=== PATIENT | female | born 1995 | race Caucasian/White ===

== ENCOUNTER 2017-05-09 19:22 | Outpatient (CLI) | payer MEDICAID ==
[2017-05-09 19:59] LABS: APPEARANCE,URINE SLIGHTLY-CLOUDY; BILIRUBIN,URINE NEGATIVE (NEGATIVE); COLOR,URINE YELLOW; GLUCOSE, URINE NEGATIVE (NEGATIVE); KETONES,URINE NEGATIVE (NEGATIVE); LEUKOCYTE ESTERASE,URINE MODERATE (NEGATIVE); NITRITE,URINE NEGATIVE (NEGATIVE); PROTEIN,URINE NEGATIVE (NEGATIVE); URINE SPECIFIC GRAVITY 1.018
[2017-05-09 20:20] LABS: URINE AMPHETAMINES SCREEN NEGATIVE; URINE BARBITURATES SCREEN NEGATIVE; URINE BENZODIAZEPINES SCREEN NEGATIVE; URINE COCAINE SCREEN NEGATIVE; URINE MARIJUANA (THC) SCREEN NEGATIVE; URINE METHADONE SCREEN NEGATIVE; URINE PHENCYCLIDINE SCREEN NEGATIVE
--- NOTE | 2017-05-09 20:36 | Non Stress Test Report ---
Non Stress Test Datetime Report Generated by CPN: 05/09/2017 20:36 DEMOGRAPHIC EGA NST: 37.1 INDICATION Indication for Study: Ordered by Provider URINE RESULTS Urine Protein, NST: Negative Urine Ketones - NST: Negative Urine Glucose - NST: Negative Urine Blood - NST: Negative MONITORING Monitor Explained: Monitor Explained; Test Explained; Patient Verbalized Understanding Time on Monitor: 05/09/2017 19:47 Time off Monitor: 05/09/2017 20:16 NST Duration: 29 NST INTERVENTIONS NST Interventions: PO Hydration; Reposition Patient Physician Notified NST: Dr. Malone BABY A: [id number] BABY A Movement : Present Contraction Frequency : none FHR Baseline : 130 Accelerations : 15X15 Decelerations : None Variability : Moderate 6-25bpm NST Review: Meets Criteria for Reactive NST NST Review and Verified By : Eduin Mcneill RN NST Results: Reactive NST REPORT Report Trigger: Send Report
== END 2017-05-09 20:36 | disposition home or self-care (01) ==
LOC: LC 19:22
PROVIDERS: ATTEND Obstetrics & Gynecology Gynecology
PROC: 4A1HXCZ Monitoring of Products of Conception, Cardiac Rate, External Approach (ICD-10-PCS; principal; 2017-05-09)
DX: O47.1 False labor at or after 37 completed weeks of gestation (principal); Z3A.37 37 weeks gestation of pregnancy
CPT/HCPCS: 59025; 80307; 81005

== ENCOUNTER 2017-05-14 14:04 | Emergency (ER) | payer MEDICAID ==
[2017-05-14 14:10] VITALS: BP 128/84
--- NOTE | 2017-05-14 14:19 | ER Document Report ---
ED Flu Like - General Chief Complaint: Flu Symptoms Stated Complaint: FLU LIKE SYMPTOMS Time Seen by Provider: 05/14/17 14:19 Mode of Arrival: Ambulatory Information source: Patient TRAVEL OUTSIDE OF THE [place] IN LAST 30 DAYS: No - HPI Onset: Yesterday Timing/Duration: Sudden Quality of pain: Achy Recent travel: No: Domestic, International, Air, Bus, Car, Train [place] exposure: No Tick/Insect bite: No: Confirmed, Suspected, Camping/Hiking, Other Associated symptoms: Chills, Productive cough, Earache, Rhinnorhea, Sore throat. denies: Headache, Sinus pain/drainage Similar symptoms previously: No Recently seen / treated by doctor: Yes - ROUTINE PRE-HALLIE - Related Data Allergies/Adverse Reactions: oxycodone HCl [From Percocet] Allergy (Verified 05/14/17 14:05) Past Medical History - General Information source: Patient - Social History Smoking Status: Unknown if Ever Smoked Frequency of alcohol use: None Drug Abuse: None Lives with: Spouse/Significant other Family History: Reviewed & Not Pertinent Patient has suicidal ideation: No Patient has homicidal ideation: No - Past Medical History Cardiac Medical History: Reports: None Pulmonary Medical History: Reports: None EENT Medical History: Reports: None Neurological Medical History: Reports: None Endocrine Medical History: Reports: None Renal/ Medical History: Reports: None Malignancy Medical History: Reports: None GI Medical History: Reports: None Musculoskeltal Medical History: Reports None Psychiatric Medical History: Reports: None Past Surgical History: Reports: Hx Orthopedic Surgery - Immunizations Immunizations up to date: Yes Hx Diphtheria, Pertussis, Tetanus Vaccination: Yes Review of Systems - Review of Systems Constitutional: See HPI EENT: See HPI Cardiovascular: No symptoms reported Respiratory: See HPI Gastrointestinal: No symptoms reported Genitourinary: denies: Dysuria Female Genitourinary: Musculoskeletal: See HPI Skin: No symptoms reported Neurological/Psychological: No symptoms reported. denies: Headaches Physical Exam - Vital signs Vitals: Temp Pulse Resp BP Pulse Ox 97.8 F 92 18 128/84 H 94 05/14/17 14:08 05/14/17 14:08 05/14/17 14:08 05/14/17 14:08 05/14/17 14:08 Interpretation: Normal - General General appearance: Appears well, Alert In distress: None - HEENT Head: Normocephalic Eyes: Normal Conjunctiva: Normal. No: Injected Ears: Normal External canal: Normal Tympanic membrane: Normal Nasal: Normal Mouth/Lips: Normal Mucous membranes: Normal Pharynx: Normal Neck: Normal - Respiratory Respiratory status: No respiratory distress Breath sounds: Normal - Cardiovascular Rhythm: Regular Heart sounds: Normal auscultation Murmur: No - Abdominal Inspection: Gravid female - Back Back: Normal - Extremities General upper extremity: Normal inspection General lower extremity: Normal inspection - Neurological Neuro grossly intact: Yes Cognition: Normal Orientation: AAOx4 - Psychological Associated symptoms: Normal affect, Normal mood - Skin Skin Temperature: Warm Skin Moisture: Dry Skin Color: Normal Skin Turgor: Elastic Course - Vital Signs Vital signs: Temp Pulse Resp BP Pulse Ox 97.8 F 92 18 128/84 H 94 05/14/17 14:08 05/14/17 14:08 05/14/17 14:08 05/14/17 14:08 05/14/17 14:08 Discharge - Discharge Clinical Impression: Viral illness Qualifiers: Weeks of gestation: 37 weeks Qualified Code(s): Z3A.37 - 37 weeks gestation of Condition: Stable Disposition: HOME, SELF-CARE Instructions: Viral Syndrome ([facility]) Additional Instructions: REST, DRINK PLENTY OF FLUIDS. YOU MAY TAKE TYLENOL (ACETAMINOPHEN) FOR CONTROL OF FEVER, ACHES & PAINS, IF NEEDED. CONSIDER TAKING MUCINEX (GUIAFENESIN) TO LOOSEN UP CONGESTION. FOLLOW UP WITH OB. OR RETURN TO E.R. IF PROBLEMS, ANY TIME.
== END 2017-05-14 15:10 | disposition home or self-care (01) ==
LOC: ER 14:04
DX: B34.9 Viral infection, unspecified (principal); Z3A.37 37 weeks gestation of pregnancy
CPT/HCPCS: 99283

== ENCOUNTER 2017-05-25 03:01 | Outpatient (CLI) | payer MEDICAID ==
[2017-05-25] MEDS ORDERED: ONDANSETRON 4 MG TAB.RAPDIS PO ONE (03:37)
[2017-05-25] MEDS ORDERED: ONDANSETRON 4 MG TAB.RAPDIS ONE (03:40)
[2017-05-25 03:46] LABS: APPEARANCE,URINE SLIGHTLY-CLOUDY; BILIRUBIN,URINE NEGATIVE (NEGATIVE); COLOR,URINE YELLOW; GLUCOSE, URINE NEGATIVE (NEGATIVE); KETONES,URINE NEGATIVE (NEGATIVE); LEUKOCYTE ESTERASE,URINE NEGATIVE (NEGATIVE); NITRITE,URINE NEGATIVE (NEGATIVE); PROTEIN,URINE NEGATIVE (NEGATIVE); URINE SPECIFIC GRAVITY 1.019; UROBILINOGEN,URINE NEGATIVE mg/dL (<2.0)
[2017-05-25 04:06] LABS: URINE AMPHETAMINES SCREEN NEGATIVE; URINE BARBITURATES SCREEN NEGATIVE; URINE BENZODIAZEPINES SCREEN NEGATIVE; URINE COCAINE SCREEN NEGATIVE; URINE MARIJUANA (THC) SCREEN NEGATIVE; URINE METHADONE SCREEN NEGATIVE; URINE PHENCYCLIDINE SCREEN NEGATIVE
--- NOTE | 2017-05-25 04:34 | Non Stress Test Report ---
Non Stress Test Datetime Report Generated by CPN: 05/25/2017 04:33 DEMOGRAPHIC EGA NST: 39.3 INDICATION Indication for Study: Ordered by Provider; Other Indication for Study (NST) Other: LC VITAL SIGNS Temperature - NST: 98.1 Pulse - NST: 83 RESP - NST: 18 NBPSYS NST: 118 NBPDIA NST: 60 URINE RESULTS Urine Protein, NST: Negative Urine Ketones - NST: Negative Urine Glucose - NST: Negative Urine Blood - NST: Positive MONITORING Monitor Explained: Monitor Explained; Test Explained; Patient Verbalized Understanding Time on Monitor: 05/25/2017 03:17 Time off Monitor: 05/25/2017 04:06 NST Duration: 49 NST INTERVENTIONS NST Interventions: None Physician Notified NST: Dr. Padron BABY A: [id number] BABY A Movement : Present Contraction Frequency : 3-8 FHR Baseline : 120 Accelerations : 15X15 Decelerations : None Variability : Moderate 6-25bpm NST Review: Meets Criteria for Reactive NST NST Review and Verified By : TiannaAlbert Myers RN NST Results: Reactive NST REPORT Report Trigger: Send Report
[2017-05-25] MEDS ORDERED: RINGERS SOLUTION,LACTATED 1,000 ML IV PRN (16:51)
[2017-05-25 17:54] LABS: APPEARANCE,URINE SLIGHTLY-CLOUDY; BILIRUBIN,URINE NEGATIVE (NEGATIVE); COLOR,URINE YELLOW; GLUCOSE, URINE NEGATIVE (NEGATIVE); KETONES,URINE 80 mg/dL (NEGATIVE); LEUKOCYTE ESTERASE,URINE TRACE (NEGATIVE); NITRITE,URINE NEGATIVE (NEGATIVE); PROTEIN,URINE 30 mg/dL (NEGATIVE); URINE SPECIFIC GRAVITY 1.017; UROBILINOGEN,URINE NEGATIVE mg/dL (<2.0)
[2017-05-25 18:08] LABS: ABSOLUTE MONOCYTES (AUTO) 0.5 10^3/uL (0.1-1.4); BASOPHILS % (AUTO) 0.1 % (0-2); HEMATOCRIT 32.5 % (36.0-47.0); HEMOGLOBIN 10.8 g/dL (12.0-15.5); LYMPHOCYTES % (AUTO) 5.2 % (13-45); MEAN CORPUSCULAR HEMOGLOBIN 27.5 pg (27.0-33.4); MEAN CORPUSCULAR HGB CONC 33.3 g/dL (32.0-36.0); MEAN CORPUSCULAR VOLUME 83 fl (80-97); MONOCYTES % (AUTO) 2.3 % (3-13); PLATELET COUNT 163 10^3/uL (150-450); RED BLOOD COUNT 3.94 10^6/uL (3.72-5.28); RED CELL DISTRIBUTION WIDTH 14.1 % (11.5-14.0); SEGMENTED NEUTROPHILS % (AUTO) 92.4 % (42-78); TOTAL CELLS COUNTED % (AUTO) 100 %; WHITE BLOOD COUNT 19.5 10^3/uL (4.0-10.5)
== END 2017-05-25 04:27 | disposition home or self-care (01) ==
LOC: LC 03:01
PROVIDERS: ATTEND Obstetrics & Gynecology
PROC: 4A1HXCZ Monitoring of Products of Conception, Cardiac Rate, External Approach (ICD-10-PCS; principal; 2017-05-25)
DX: O47.1 False labor at or after 37 completed weeks of gestation (principal); Z3A.39 39 weeks gestation of pregnancy
CPT/HCPCS: 59025; 86900; 86901; 36415; 86870; 86850; 85025; 81005; 86592; 80307; S0119

== ENCOUNTER 2017-05-25 12:22 | Inpatient (IN) | payer MEDICAID ==
[2017-05-25] MEDS ORDERED: RINGERS SOLUTION,LACTATED 700 ML IV ONE (13:00)
[2017-05-25] MEDS ORDERED: PROMETHAZINE HCL INJ 25 MG/1 ML VIAL IV ONE (13:00)
[2017-05-25 13:04] LABS: APPEARANCE,URINE SLIGHTLY-CLOUDY; BILIRUBIN,URINE NEGATIVE (NEGATIVE); COLOR,URINE YELLOW; GLUCOSE, URINE NEGATIVE (NEGATIVE); KETONES,URINE 80 mg/dL (NEGATIVE); LEUKOCYTE ESTERASE,URINE TRACE (NEGATIVE); NITRITE,URINE NEGATIVE (NEGATIVE); PROTEIN,URINE 100 mg/dL (NEGATIVE); URINE SPECIFIC GRAVITY 1.029; UROBILINOGEN,URINE NEGATIVE mg/dL (<2.0)
[2017-05-25 13:20] LABS: URINE AMPHETAMINES SCREEN NEGATIVE; URINE BARBITURATES SCREEN NEGATIVE; URINE BENZODIAZEPINES SCREEN NEGATIVE; URINE COCAINE SCREEN NEGATIVE; URINE MARIJUANA (THC) SCREEN NEGATIVE; URINE METHADONE SCREEN NEGATIVE; URINE PHENCYCLIDINE SCREEN NEGATIVE
[2017-05-25] MEDS ORDERED: PROMETHAZINE HCL INJ 25 MG/1 ML VIAL ONE (13:31)
[2017-05-25] MEDS ORDERED: RINGERS SOLUTION,LACTATED 1,000 ML IV PRN (14:19)
[2017-05-25] MEDS ORDERED: EPHEDRINE SULFATE INJ 50 MG/1 ML AMPULE ONE (18:43)
[2017-05-25] MEDS ORDERED: FENTANYL/BUPIVACAINE/NS/PF 200 MCG/100 ML RTUINJ EPI ONE (18:43)
[2017-05-25] MEDS ORDERED: BUPIVACAINE HCL 0.25 % INJ/PF (2.5 MG/1 ML) 30 ML VIAL ONE (18:44)
[2017-05-25] MEDS ORDERED: MISOPROSTOL 0.2 MG TABLET ONE (21:02)
--- NOTE | 2017-05-25 21:02 | L&D Progress Notes ---
PROGRESS NOTES Datetime Report Generated by CPN: 05/25/2017 21:01 PROGRESS NOTE Impression: Normal Progression of Labor Procedures: Artificial ROM; Sterile Vag Exam Plan: Continue Present Management Informed Consent Obtained: Vaginal Delivery Vital Signs : Reviewed Comment: Comfortable with epidural AROM, blood tinged fluid Start pitocin VAGINAL EXAM Dilatation: 7 Dilatation: 3 Effacement: 90 Effacement: 75 Station: -1 Station: -3 Contractions: irreg Contractions: 2-5 MEMBRANES Membranes: Ruptured Membranes: Intact Amniotic Fluid Color: Bloody FETUS A FHR - Baseline: 150 Variability: Moderate 6-25bpm Accelerations: 15X15 Decelerations: Variable FHR Category: Category I Presentation: Vertex SIGNATURE SIGNATURE: ,[id number];,[id number] SIGNATURE: [id number] SIGNATURE: ,[id number] Assignment: Savanna Billingsley MD Signature: with User ID: [email or web address] : with User ID: [email or web address]
[2017-05-25] MEDS ORDERED: OXYTOCIN/NORMAL SALINE 20 UNIT/1,000 ML RTUINJ IV PRN (21:03)
[2017-05-25] MEDS ORDERED: LIDOCAINE 1% INJ-PF (10 MG/ML) 30 ML SDV ONE (21:03)
[2017-05-25] MEDS ORDERED: OXYTOCIN/NORMAL SALINE 20 UNIT/1,000 ML RTUINJ ONE (21:03)
[2017-05-26] MEDS ORDERED: CEFAZOLIN 2 GM/D5W RTU 2 GM/50 ML RTUPB IV ONE (03:27)
[2017-05-26] MEDS ORDERED: CITRIC ACID/SODIUM CITRATE ORAL SOLN 15 ML UDCUP ONE (03:27)
[2017-05-26] MEDS ORDERED: CEFAZOLIN SODIUM 2 GM in DEXTROSE 5%-WATER 50 ML IV PRN (03:34)
[2017-05-26] MEDS ORDERED: LIDOCAINE 2% INJ-PF (20 MG/ML) 10 ML AMPUL ONE (03:37)
[2017-05-26] MEDS ORDERED: ONDANSETRON HCL INJ/PF 4 MG/2 ML SDV ONE (04:33)
[2017-05-26] MEDS ORDERED: MIDAZOLAM 2 MG/2 ML INJ ONE (04:33)
[2017-05-26] MEDS ORDERED: MORPHINE SULFATE 10 MG/ML INJ ONE (04:33)
[2017-05-26] MEDS ORDERED: OXYTOCIN 10 UNIT/ML VIAL ONE (04:33)
[2017-05-26] MEDS ORDERED: KETAMINE HCL INJ 500 MG/10 ML VIAL ONE (04:33)
[2017-05-26] MEDS ORDERED: PROPOFOL INJ 200 MG/20 ML VIAL IV ONE (05:13)
[2017-05-26] MEDS ORDERED: FENTANYL CITRATE INJ/PF 100 MCG/2 ML AMPUL ONE (05:26)
--- NOTE | 2017-05-26 06:08 | OPERATIVE REPORT E ---
Operative Report NAME: GERA LOZOYA : 1995 AGE: 22Y DATE OF SURGERY: 05/26/2017 ROOM: LR200 PREOPERATIVE DIAGNOSES: 1. IUP at 39 weeks and 4 days. 2. Failure to progress. POSTOPERATIVE DIAGNOSES: 1. IUP at 39 weeks and 4 days. 2. Failure to progress. SURGEON: RICHARD BALLESTEROS M.D. ANESTHESIA: Dr. Langley with general. FINDINGS: A male in cephalic presentation with Apgars of 9 and 9. ESTIMATED BLOOD LOSS: 600 mL. SPECIMENS REMOVED: None. PROCEDURE: A low transverse hysterotomy section. PROCEDURE IN DETAIL: The patient was taken to the operating room and prepared and draped in the normal sterile fashion in a supine position with a leftward tilt. A transverse skin incision was made with the scalpel and the patient complained of being able to feel too much pain and so the procedure was paused while the anesthesiologist placed the patient under general as the regional anesthesia did not seem to be working appropriately. At this point, once the intubation was completed, I continued with dividing of the fascia in the midline with the Caal's and extending laterally with Caal's. The fascia was dissected from the rectus muscle bluntly and the rectus muscle was divided and peritoneal cavity was entered bluntly. Good visualization of the bladder and uterus was obtained and the bladder blade was inserted. Hysterotomy was nicked with a scalpel and extended laterally with surgeon finger fracture. The infant was then delivered atraumatically. The nose and mouth were suctioned with a suction bulb and cord was clamped and cut and the was handed off to awaiting pediatricians. Cord blood was collected and the placenta was removed manually. The uterus was exteriorized and cleared of clots and debris. The hysterotomy was closed with 0 Monocryl in a running-locked fashion. A second layer of the same suture was used to imbricate to ensure hemostasis. The uterus was returned to the peritoneal cavity, which was then cleared of clots and debris. The rectus muscle and peritoneum were then reapproximated with a mattress stitch of 2-0 Chromic. The fascia was closed with 0 Vicryl. The subcutaneous layer was closed with plain catgut and the skin was closed with 4-0 Vicryl. The patient tolerated the procedure well. Sponge, lap, and needle counts were correct x2. The patient was taken to recovery in stable condition. DICTATING PHYSICIAN: RICHARD BALLESTEROS M.D. [id number] PHY#: [id number] ID: [id number] JOB#: [id number] ACCT: [id number] cc:RICHARD BALLESTEROS M.D. >
[2017-05-26] MEDS ORDERED: OXYTOCIN/NORMAL SALINE 20 UNIT/1,000 ML RTUINJ ONE (07:18)
[2017-05-26] MEDS ORDERED: ACETAMINOPHEN 100 ML IV ONE (07:24)
[2017-05-26] MEDS ORDERED: PROMETHAZINE HCL INJ 25 MG/1 ML VIAL IV PRN (07:26)
[2017-05-26] MEDS ORDERED: OXYTOCIN/NORMAL SALINE 20 UNIT/1,000 ML RTUINJ IV PRN (07:26)
[2017-05-26] MEDS ORDERED: ACETAMINOPHEN 100 ML IV PRN (07:26)
[2017-05-26] MEDS ORDERED: ACETAMINOPHEN 325 MG TABLET PO PRN (07:26)
[2017-05-26] MEDS ORDERED: MEASLES,MUMPS&RUBELLA VACC/PF 0.5 ML VIAL SUBCUT PRN (07:26)
[2017-05-26] MEDS ORDERED: HYDROMORPHONE HCL INJ/PF 2 MG/ML AMPULE IV PRN (07:26)
[2017-05-26] MEDS ORDERED: SIMETHICONE 80 MG TAB.CHEW PO PRN (07:26)
[2017-05-26] MEDS ORDERED: DIPH/PERTUSS(ACELL)/TETANUS VAC/PF 0.5 ML SYR (>=10YO) IM PRN (07:26)
[2017-05-26] MEDS ORDERED: OXYCODONE-ACETAMINOPHEN 5-325 MG TABLET PO PRN ×2 (07:31→07:33)
--- NOTE | 2017-05-26 08:12 | Admission Physical ---
Datetime Report Generated by CPN: 05/26/2017 08:12 CURRENT ADMISSION Hx Assessment: The History has been Reviewed and is Current Chief Complaint: Uterine Contractions Indication for Induction: Not Applicable Indication for Induction: Term, Intrauterine ; Active Labor; Intact Membranes Admit Plan: Admit to Unit; Initiate Labor Protocol ALLERGIES Medication Allergies: Yes Medication Allergies: oxycodone HCl (05/25/2017) Medication Allergies: oxycodone HCl (05/14/2017) Medication Allergies: oxycodone HCl (05/09/2017); acetaminophen (05/09/2017) Medication Allergies: oxycodone HCl (02/15/2014); acetaminophen (02/15/2014) Latex: No Latex Allergies Food Allergies: none Environmental Allergies: cats OBSTETRICAL HISTORY EDC: 05/29/2017 00:00 : 1 Para: 0 Term: 0 : 0 SAB: 0 IAB: 0 Ectopic: 0 Livin Cesareans: 0 VBACs: 0 Multiple Births: 0 Gestational Diabetes: No Rh Sensitization: No Incompetent Cervix: No CHRIS: No Infertility: No ART Treatment: No Uterine Anomaly: No IUGR: No Hx Previous C/S: No Macrosomia: No Hx Loss/Stillborn: No PIH: No Hx : No Placenta Previa/Abruption: No Depression/PP Depression: No PTL/PROM: No Post Hemorrhage: No Current Procedures: Ultrasound; NST Obstetrical History Comments: G1 - current SEE RECORDS Alcohol: No Marijuana : No Cocaine: No Other Illicit Drugs: No Cigarettes: Never Smoker. [id number] MEDICAL HISTORY Diabetes: No Blood Transfusion: No Pulmonary Disease (Asthma, TB): No Breast Disease: No Hypertension: No Tower Supervisor Surgery: No Heart Disease: No Hosp/Surgery: Yes Autoimmune Disorder: No Anesthetic Complications: No Kidney Disease: No Abnormal Pap Smear: No Neuro/Epilepsy: No Psychiatric Disorders: No Other Medical Diseases: No Hepatitis/Liver Disease: No Significant Family History: No Varicosities/Phlebitis: No Trauma/Violence : No Thyroid Dysfunction: No Medical History Comments: Femur surgery INFECTIOUS HISTORY Gonorrhea: No Genital Herpes: No Chlamydia: No Tuberculosis: No Syphilis: No Hepatitis: No HIV/AIDS Exposure: No Rash or Viral Illness: No HPV: No PHYSICAL EXAM General: Normal HEENT: Normal Neurologic: Normal Thyroid: Deferred Heart: Normal Lungs: Normal Breast: Normal Back: Normal Abdomen: Normal Genitourinary Exam: Normal Extremities: Normal DTRs: Normal Pelvic Type: Adequate Vital Signs: Reviewed VAGINAL EXAM Dilatation: 7 Dilatation: 3 Effacement: 90 Effacement: 75 Station: -1 Station: -3 Contraction Comments: irreg Contraction Comments: 2-5 MEMBRANES Membranes: Ruptured Membranes: Intact Amniotic Fluid Color: Bloody FETUS A EGA: 39.3 Monitoring: External US FHR- Baseline: 135 Variability: Moderate 6-25bpm Accelerations: 15X15 Decelerations: None FHR Category: Category I Presentation: Vertex Admit Comment: Admit to L _ D, active labor, denies lof, + bloody show, ctx GBS neg RH neg, received rhogam Pt may have epidural prn care uncomplicated other than first trimester spotting. PLANS FOR LABOR AND DELIVERY Labor and Delivery: None Pain Management: Natural Other Pain Management Plans: open to options Feeding Preference: Both Benefit of Breast Feed Discussed: Yes Circumcision: Yes INFORMED CONSENT Informed Consent Obtained: Vaginal Delivery Assignment: Savanna Billingsley MD Signature: with User ID: Lance : with User ID: Lance
[2017-05-26] MEDS: DOCUSATE SODIUM 100 MG CAPSULE PO SCH ×2 (11:45→17:53)
[2017-05-26] MEDS: PRENATAL VITAMIN W DHA CAPSULE PO SCH (11:45)
[2017-05-26] MEDS ORDERED: IBUPROFEN 800 MG TABLET PO SCH (12:00)
[2017-05-26] MEDS ORDERED: HYDROCODONE/ACETAMINOPHEN 5-325 MG TABLET PO PRN ×2 (12:03)
[2017-05-26] MEDS: KETOROLAC TROMETHAMINE INJ/PF 30 MG/1 ML SDV IV SCH ×2 (14:53→22:59)
[2017-05-27] MEDS: KETOROLAC TROMETHAMINE INJ/PF 30 MG/1 ML SDV IV SCH (06:32)
[2017-05-27 07:29] LABS: HEMATOCRIT 25.2 % (36.0-47.0); MEAN CORPUSCULAR HEMOGLOBIN 27.7 pg (27.0-33.4); MEAN CORPUSCULAR HGB CONC 32.9 g/dL (32.0-36.0); MEAN CORPUSCULAR VOLUME 84 fl (80-97); PLATELET COUNT 142 10^3/uL (150-450); RED CELL DISTRIBUTION WIDTH 14.5 % (11.5-14.0); WHITE BLOOD COUNT 16.7 10^3/uL (4.0-10.5)
[2017-05-27 07:33] LABS: HEMOGLOBIN 8.3 g/dL (12.0-15.5)
[2017-05-27] MEDS: DOCUSATE SODIUM 100 MG CAPSULE PO SCH ×2 (09:16→17:34)
[2017-05-27] MEDS: PRENATAL VITAMIN W DHA CAPSULE PO SCH (09:16)
--- NOTE | 2017-05-27 09:46 | PDOC PROGRESS REPORT ---
Subjective-OB Progress Note for:: 05/27/17 Subjective: Post-OP day #1 Is passing gas, tolerating diet, ambulating well, lochia is stable, pain well controlled, voiding without difficulty. Pt c/o bruise on right shoulders, unsure where it came from. Physical Exam (OB) Vital Signs: Temp Pulse Resp BP Pulse Ox 98.7 F 79 18 127/69 H 100 05/27/17 08:29 05/27/17 08:29 05/27/17 08:29 05/27/17 08:29 05/27/17 08:29 Intake & Output 05/26/17 05/27/17 05/28/17 06:59 06:59 06:59 Output Total 1025 Balance -1025 Weight 74.7 kg - PIH/Pre-Eclampsia DTR's: 2 + Clonus: Negative Headache: Absent Epigastric Pain: No Visual Changes: No - Dressing Removed: No Incision: Well Approximated Closure Type: Surgical Glue - Lochia Lochia Amount: Scant < 10 ml Lochia Color: Rubra/Red - Abdomen Description: Soft, Flat Hernia Present: No Fundal Description: Firm, Midline Fundal Height: u/u - u/2 Objective-Diagnostic Laboratory: 05/27/17 06:49 05/27/17 06:49 WBC 16.7 H RBC 3.00 L Hgb 8.3 L D Hct 25.2 L MCV 84 MCH 27.7 MCHC 32.9 RDW 14.5 H Plt Count 142 L Assessment and Plan(PN) - Assessment and Plan (1) Delivery by emergency Is this a current diagnosis for this admission?: Yes Plan: routine postop care (2) Anemia complicating Qualifiers: Trimester: third trimester Qualified Code(s): O99.013 - Anemia complicating , third trimester Is this a current diagnosis for this admission?: Yes Plan: routine post op care (3) Bruise Is this a current diagnosis for this admission?: Yes Plan: monitor - Time Spent with Patient Time with patient: Less than 15 minutes Critical Time spent with patient: Less than 15 minutes Medications reviewed and adjusted accordingly: Yes - Disposition Anticipated Discharge: Home Within: within 24 hours
[2017-05-27] MEDS: IBUPROFEN 800 MG TABLET PO SCH ×2 (13:36→21:24)
[2017-05-28] MEDS: IBUPROFEN 800 MG TABLET PO SCH (05:25)
--- NOTE | 2017-05-28 06:53 | Delivery Summary ---
Del Sum A-C Datetime Report Generated by CPN: 05/28/2017 06:53 DELIVERY PERSONNEL DELIVERY PERSONNEL: [id number] Delivery Doctor:: Savanna Billingsley MD Anesthesiologist:: Aime Langley MD PULMONOLOGY PHYSICIAN:: Eduardo Figueroa CRNA Labor and Delivery Nurse:: Mili Vega RN Web Producer:: Mili Vega RN Neonatal Nurse Practitioner:: SHANTE Stinson Nursery Nurse:: Diana Winslow RN Residential Driver/CREAM SEPARATOR OPERATOR: [facility] Residential Driver/CREAM SEPARATOR OPERATOR: Gauri Urenar, NUCLEAR PLANT OPERATOR MATERNAL INFORMATION Delivery Anesthesia: General Medications After Delivery: Pitocin Drip 20 Units/1000ml NSS Maternal Complications: None LABOR SUMMARY EDC: 05/29/2017 00:00 No. Babies in Womb: 1 Attempted: No Labor Anesthesia: Epidural LABOR INFORMATION Reason for Induction: Not Applicable Onset of Labor: 05/25/2017 12:35 Oxytocin: Induction Group B Beta Strep: negative Antibiotics # of Doses: 1 Antibiotics Time of Last Dose: 0425 Name of Antibiotic Given: ancef Steroids Given: None Reason Steroids Not Administered: Not Applicable MEMBRANES Membranes Rupture Method: Artificial Rupture of Membranes: 05/25/2017 20:55 Length of Rupture (hr): 7.77 Amniotic Fluid Color: Bloody Amniotic Fluid Amount: Large Amniotic Fluid Odor: Normal STAGES OF LABOR Stage 3 hr: 0 Stage 3 min: 2 Total Time in Labor hr: 16 Total Time in Labor min: 8 VAGINAL DELIVERY Episiotomy: None Laceration #1: None Laceration Extension #1: N/A Laceration Repair: Not Applicable Initial Vag Sponge Count: 0 Final Vag Sponge Count: 0 Initial Vag Sharps Count: 0 Final Vag Sharps Count: 0 Sponge Count Correct: N/A Sharps Count Correct: N/A CSECTION DELIVERY Primary Indication: Failure of Descent Secondary Indication: N/A CSection Urgency: Non-Scheduled CSection Incidence: Primary Labor: Labor Elective: Nonelective CSection Incision: Lower Uterine Transverse BABY A INFORMATION Infant Delivery Date/Time: 05/26/2017 04:41 Method of Delivery: Born in Route : No : N/A Forceps: N/A Vacuum Extraction: N/A Shoulder Dystocia : No PRESENTATION/POSITION BABY A Presentation: Cephalic Cephalic Presentation: Vertex Breech Presentation: N/A PLACENTA INFORMATION BABY A Placenta Delivery Time : 05/26/2017 04:43 Placenta Method of Delivery: Expressed Placenta Status: Delivered SCORES BABY A Heart Rate 1 min: >100 bpm Resp Effort 1 min: Good Cry Reflex Irritability 1 min: Cough or Sneeze or Pulls Away Muscle Tone 1 min: Active Motion Color 1 min: Body [place], Extremities Blue SCORE 1 MIN: 9 Heart Rate 5 min: >100 bpm Resp Effort 5 min: Good Cry Reflex Irritability 5 min: Cough or Sneeze or Pulls Away Muscle Tone 5 min: Active Motion Color 5 min: Body [place], Extremities Blue SCORE 5 MIN: 9 INFORMATION BABY A Gestational Age at Delivery: 39.4 Gestational Status: Full Term- 39- 40.6 Weeks Outcome : Liveborn Infant Condition : Stable Infant Sex: Male IDENTIFICATION BABY A Verification Date/Time: 05/26/2017 04:45 ID Band Number: [id number] Mother's Name Verified: Yes Infant RN Verifying Infant: Lindsey RN Additional Verifying Personnel: Gucci RN WEIGHT/LENGTH BABY A Birthweight (gm): 3400 Weight (lb): 7 Infant Weight (oz): 8 Infant Length (in): 21.25 Length (cm): 53.98 CORD INFORMATION BABY A No. Cord Vessels: 3 Nuchal Cord : N/A Cord Blood Taken: Yes-For Eval (Mom's Blood Type - or O+) ASSESSMENT BABY A Physical Findings at Delivery: Within Normal Limits; Molding of the Head Infant Respirations: Appears Normal Skin to Skin: Yes Infant Care By: Reshma Aragon, MANAGED SERVICES CONSULTANT Transferred To: Nursery BABY B INFORMATION : N/A
--- NOTE | 2017-05-28 06:54 | Delivery Summary ---
Del Sum A-C Datetime Report Generated by CPN: 05/28/2017 06:54 DELIVERY PERSONNEL DELIVERY PERSONNEL: [id number] Delivery Doctor:: Savanna Billingsley MD Anesthesiologist:: Aime Langley MD SALES ADVISOR:: Eduardo Figueroa CRNA Labor and Delivery Nurse:: Mili Vega RN Porcelain Turner:: Mili Vega RN Neonatal Nurse Practitioner:: SHANTE Stinson Nursery Nurse:: Diana Winslow RN Die Holder/PUBLIC ADMINISTRATION PROFESSOR: [facility] Die Holder/PUBLIC ADMINISTRATION PROFESSOR: Gauri Urenar, GAS CONTROLLER MATERNAL INFORMATION Delivery Anesthesia: General Medications After Delivery: Pitocin Drip 20 Units/1000ml NSS Maternal Complications: None LABOR SUMMARY EDC: 05/29/2017 00:00 No. Babies in Womb: 1 Attempted: No Labor Anesthesia: Epidural LABOR INFORMATION Reason for Induction: Not Applicable Onset of Labor: 05/25/2017 12:35 Oxytocin: Induction Group B Beta Strep: negative Antibiotics # of Doses: 1 Antibiotics Time of Last Dose: 0425 Name of Antibiotic Given: ancef Steroids Given: None Reason Steroids Not Administered: Not Applicable MEMBRANES Membranes Rupture Method: Artificial Rupture of Membranes: 05/25/2017 20:55 Length of Rupture (hr): 7.77 Amniotic Fluid Color: Bloody Amniotic Fluid Amount: Large Amniotic Fluid Odor: Normal STAGES OF LABOR Stage 3 hr: 0 Stage 3 min: 2 Total Time in Labor hr: 16 Total Time in Labor min: 8 VAGINAL DELIVERY Episiotomy: None Laceration #1: None Laceration Extension #1: N/A Laceration Repair: Not Applicable Initial Vag Sponge Count: 0 Final Vag Sponge Count: 0 Initial Vag Sharps Count: 0 Final Vag Sharps Count: 0 Sponge Count Correct: N/A Sharps Count Correct: N/A CSECTION DELIVERY Primary Indication: Failure of Descent Secondary Indication: N/A CSection Urgency: Non-Scheduled CSection Incidence: Primary Labor: Labor Elective: Nonelective CSection Incision: Lower Uterine Transverse BABY A INFORMATION Infant Delivery Date/Time: 05/26/2017 04:41 Method of Delivery: Born in Route : No : N/A Forceps: N/A Vacuum Extraction: N/A Shoulder Dystocia : No PRESENTATION/POSITION BABY A Presentation: Cephalic Cephalic Presentation: Vertex Breech Presentation: N/A PLACENTA INFORMATION BABY A Placenta Delivery Time : 05/26/2017 04:43 Placenta Method of Delivery: Expressed Placenta Status: Delivered SCORES BABY A Heart Rate 1 min: >100 bpm Resp Effort 1 min: Good Cry Reflex Irritability 1 min: Cough or Sneeze or Pulls Away Muscle Tone 1 min: Active Motion Color 1 min: Body [place], Extremities Blue SCORE 1 MIN: 9 Heart Rate 5 min: >100 bpm Resp Effort 5 min: Good Cry Reflex Irritability 5 min: Cough or Sneeze or Pulls Away Muscle Tone 5 min: Active Motion Color 5 min: Body [place], Extremities Blue SCORE 5 MIN: 9 INFORMATION BABY A Gestational Age at Delivery: 39.4 Gestational Status: Full Term- 39- 40.6 Weeks Outcome : Liveborn Infant Condition : Stable Infant Sex: Male IDENTIFICATION BABY A Verification Date/Time: 05/26/2017 04:45 ID Band Number: [id number] Mother's Name Verified: Yes Infant RN Verifying Infant: Lindsey RN Additional Verifying Personnel: Gucci RN WEIGHT/LENGTH BABY A Birthweight (gm): 3400 Weight (lb): 7 Infant Weight (oz): 8 Infant Length (in): 21.25 Length (cm): 53.98 CORD INFORMATION BABY A No. Cord Vessels: 3 Nuchal Cord : N/A Cord Blood Taken: Yes-For Eval (Mom's Blood Type - or O+) ASSESSMENT BABY A Physical Findings at Delivery: Within Normal Limits; Molding of the Head Infant Respirations: Appears Normal Skin to Skin: Yes Infant Care By: Reshma Aragon, CAPACITOR PACK PRESS OPERATOR Transferred To: Nursery BABY B INFORMATION : N/A
--- NOTE | 2017-05-28 08:31 | PDOC DISCHARGE SUMMARY ---
Final Diagnosis Discharge Date: 05/28/17 - Final Diagnosis (1) Delivery by emergency Is this a current diagnosis for this admission?: Yes (2) Anemia complicating Is this a current diagnosis for this admission?: Yes (3) Bruise Is this a current diagnosis for this admission?: Yes Discharge Data - Discharge Medication Prescriptions: Hydrocodone/Acetaminophen [[place] 5-325 mg Tablet] 2 tab PO Q4HP PRN #30 tablet PRN Reason: Docusate Sodium [Colace 100 mg Capsule] 100 mg PO BID #60 capsule Ferrous Sulfate 325 mg PO BID #60 tablet. Ibuprofen [Motrin 800 mg Tablet] 800 mg PO Q8 #60 tablet Home Medications: Pnv No.95/Ferrous Fum/Folic AC [ Multivitamin Tablet] 1 each PO DAILY Docusate Sodium [Colace 100 mg Capsule] 100 mg PO BID #60 capsule 05/28/17 Ferrous Sulfate 325 mg PO BID #60 tablet. 05/28/17 Hydrocodone/Acetaminophen [[place] 5-325 mg Tablet] 2 tab PO Q4HP PRN #30 tablet 05/28/17 Ibuprofen [Motrin 800 mg Tablet] 800 mg PO Q8 #60 tablet 05/28/17 Gestational Age: 39.4 Reason(s) for Admission: Onset of Labor Procedures: NST Intrapartum Procedure(s): : Low Cervical, Transverse - Data Baby 1 Male at 1 minute: 9 at 5 minutes: 9 Weight: 3400 kg Home with Mother: Yes Complications: No - Diagnosis Test Laboratory: Temp Pulse Resp BP Pulse Ox 98.3 F 89 16 120/77 100 05/28/17 07:30 05/28/17 07:30 05/28/17 07:30 05/28/17 07:30 05/28/17 04:00 05/25/17 05/27/17 12:30 06:49 RBC 3.00 L Hgb 8.3 L D Hct 25.2 L Urine Opiates Screen NEGATIVE - Discharge information/Instructions Discharge Activity: Activity As Tolerated, Pelvic Rest, No tub bath Discharge Diet: Regular Disposition: HOME, SELF-CARE Follow up with: [facility] in: 1, Weeks
[2017-05-28 09:10] LABS: ABSOLUTE EOSINOPHILS # (AUTO) 0.1 10^3/uL (0.0-0.6); ABSOLUTE LYMPHOCYTES (AUTO) 1.4 10^3/uL (0.5-4.7); ABSOLUTE MONOCYTES (AUTO) 0.7 10^3/uL (0.1-1.4); BASOPHILS % (AUTO) 0.2 % (0-2); HEMATOCRIT 24.9 % (36.0-47.0); HEMOGLOBIN 8.2 g/dL (12.0-15.5); LYMPHOCYTES % (AUTO) 12.8 % (13-45); MEAN CORPUSCULAR HEMOGLOBIN 27.5 pg (27.0-33.4); MEAN CORPUSCULAR HGB CONC 32.9 g/dL (32.0-36.0); MEAN CORPUSCULAR VOLUME 84 fl (80-97); PLATELET COUNT 156 10^3/uL (150-450); RED BLOOD COUNT 2.98 10^6/uL (3.72-5.28); RED CELL DISTRIBUTION WIDTH 14.4 % (11.5-14.0); TOTAL CELLS COUNTED % (AUTO) 100 %; WHITE BLOOD COUNT 11.3 10^3/uL (4.0-10.5)
[2017-05-28] MEDS: DOCUSATE SODIUM 100 MG CAPSULE PO SCH (09:45)
[2017-05-28] MEDS: PRENATAL VITAMIN W DHA CAPSULE PO SCH (09:45)
[2017-05-28 10:47] VITALS: BP 111/71
== END 2017-05-28 12:29 | disposition home or self-care (01) | DRG 766 ==
LOC: LC 12:22 → LR 16:54 → 2N 05-26 08:01
PROVIDERS: ADMIT Obstetrics & Gynecology; ATTEND Obstetrics & Gynecology
PROC: 4A1HXCZ Monitoring of Products of Conception, Cardiac Rate, External Approach (ICD-10-PCS; 2017-05-25)
PROC: 10907ZC Drainage of Amniotic Fluid, Therapeutic from Products of Conception, Via Natural or Artificial Opening (ICD-10-PCS; 2017-05-25)
PROC: 10D00Z1 Extraction of Products of Conception, Low, Open Approach (ICD-10-PCS; principal; 2017-05-26)
PROC: 3E0234Z Introduction of Serum, Toxoid and Vaccine into Muscle, Percutaneous Approach (ICD-10-PCS; 2017-05-28)
DX: O62.2 Other uterine inertia (principal); O99.02 Anemia complicating childbirth; D64.9 Anemia, unspecified; Z37.0 Single live birth; Z3A.39 39 weeks gestation of pregnancy; Z23 Encounter for immunization
CPT/HCPCS: 1961; 36415; 80307; 81005; 85025; 85027; 90715; 94799; J0131; J0690; J1170; J1885; J2250; J2270; J2405; J2550; J2590; J2704; J3010; J3490; J7120